=== PATIENT | female | born 1970 | race Caucasian/White ===

== ENCOUNTER 2019-01-09 12:27 | Inpatient (IN) | payer BC, OTHER ==
[2019-01-09] VITALS: BP 130/72
[~2019-01-09] VITALS: Ht 157.5 cm; Wt 46.3 kg
--- NOTE | 2019-01-09 12:34 | NUR ---
PT BIBRA FROM SNF TO ER BED 10. CAME IN ALTERED. PER REPORT, WITNESSED SEIZURE. NO NOTED ORAL/HEAD TRAUMA SPIRAL BINDER. VERBALLY RESPONSIVE BUT CONFUSED. GOWNED. PLACED ON MONITOR. SEIZURE PRECATION IMPLEMENTED. AWAITING MD LYNCH.
--- NOTE | 2019-01-09 12:55 | NUR ---
DR BURNETT AT BEDSIDE FOR EVAL.
[2019-01-09 13:10] LABS: BASOPHILS % (AUTO) 0.6 % (0.0-2.0); EOSINOPHILS % (AUTO) 0.4 % (0.0-6.0); HEMATOCRIT 38 % (33-45); LYMPHOCYTES # (AUTO) 1.4 /CMM (0.8-4.8); LYMPHOCYTES % (AUTO) 22.6 % (20.0-44.0); MEAN CORPUSCULAR HGB CONC 34 g/dl (31.0-36.0); MEAN CORPUSCULAR VOLUME 89 fL (82-100); MONOCYTES # (AUTO) 0.5 /CMM (0.1-1.30); MONOCYTES % (AUTO) 7.5 % (2.0-12.0); NEUTROPHILS # (AUTO) 4.4 /CMM (1.8-8.9); NEUTROPHILS % (AUTO) 68.9 % (43.0-81.0); PLATELET COUNT (AUTO) 194 /CMM (150-450); RED BLOOD CELL COUNT(AUTO) 4.31 MIL/uL (4.0-5.2); WHITE BLOOD COUNT (AUTO) 6.4 K/uL (4.3-11.0)
[2019-01-09 13:21] LABS: CALCIUM, SERUM 10.2 mg/dL (8.5-10.1); CARBON DIOXIDE 27 mmol/L (21-32); CHLORIDE 99 mmol/L (98-107); CREATININE 0.8 mg/dL (0.6-1.3); GLUCOSE 118 mg/dL (74-106); POTASSIUM 3.9 mmol/L (3.5-5.1); SODIUM SERUM 139 mmol/L (136-145); UREA NITROGEN, BLOOD 9 mg/dL (7-18)
[2019-01-09 13:24] LABS: ALANINE AMINOTRANSFERASE 51 U/L (12-78); ALBUMIN 4.4 g/dL (3.4-5.0); ALCOHOL, BLOOD < 3 mg/dL (0-0); ALKALINE PHOSPHATASE 89 U/L (46-116); ASPARTATE AMINOTRANSFERASE 55 U/L (15-37); BILIRUBIN,DIRECT 0.2 mg/dL (0.0-0.2); BILIRUBIN,TOTAL 0.6 mg/dL (0.2-1.0)
[2019-01-09] MEDS ORDERED: OLAN5TAB3 PO (13:34)
[2019-01-09] MEDS ORDERED: BISA10SU11 RC (13:34)
[2019-01-09] MEDS ORDERED: NICO-676 TD (13:34)
[2019-01-09] MEDS ORDERED: ACET-868 PO (13:34)
[2019-01-09] MEDS ORDERED: MULT-447 PO (13:34)
[2019-01-09] MEDS ORDERED: MAGN400O6 PO (13:34)
[2019-01-09] MEDS ORDERED: SENN-168 PO (13:34)
[2019-01-09] MEDS ORDERED: NA P133E RC (13:34)
[2019-01-09] MEDS ORDERED: CLON1TAB PO (13:34)
[2019-01-09] MEDS ORDERED: ESCI10TA PO (13:34)
[2019-01-09] MEDS ORDERED: IV NS 0.9% 1,000 ML BAG IV ONE (14:30)
--- NOTE | 2019-01-09 14:30 | NUR ---
RECTAL TEMP 99.6
--- NOTE | 2019-01-09 14:33 | NUR ---
RADIOLOGY AT BEDSIDE FOR CHEST XRAY.
[2019-01-09 14:46] LABS: APPEARANCE,URINE Clear (CLEAR); BILIRUBIN,URINE SMALL (NEGATIVE); BLOOD, URINE Negative Ery/uL (NEGATIVE); COLOR,URINE Yellow (YELLOW); KETONES,URINE 80 (NEGATIVE); LEUKOCYTE ESTERASE ,URINE Negative (NEGATIVE); NITRITE, URINE Negative (NEGATIVE); PH,URINE 6.5 (5.0-8.0); PROTEIN,URINE 100 mg/dl (NEGATIVE); UGLUCOSE Negative (NEGATIVE); UROBILINOGEN,URINE 0.2 EU/dL (0.2)
[2019-01-09 15:19] LABS: BACTERIA,URINE Few /HPF (None Seen); RBC,URINE 0-2 /HPF (0-2); SQUAMOUS EPITHELIAL CELL,UR Few /HPF (None Seen)
[2019-01-09 15:20] LABS: URINE AMORPHOUS URATE Few /HPF (None Seen)
--- NOTE | 2019-01-09 15:44 | NUR ---
CONTACT INFO FOR ELISEO (FAMILY)
--- NOTE | 2019-01-09 15:51 | NUR ---
CALLED FOR TELE-BED, TURNED IN MOVE SHEET
--- NOTE | 2019-01-09 16:51 | NUR ---
BED INFO: TELE BED 116-1, AGUSTO IS RECEIVING
--- NOTE | 2019-01-09 17:06 | NUR ---
REPORT GIVEN TO AGUSTO. AWAITING TRANSFER TO FLOOR.
--- NOTE | 2019-01-09 17:30 | NUR ---
RECEIVED PT FROM ER. PT IS ALTERED AND ANSWERING INAPPROPRIATELY. A&OX1. SKIN IS INTACT. PT HAS A R HAND IV [address] ELLIS FOR ADMISSION ORDERS. SEIZURE PRECAUTIONS IN PLACE WITH SUCTION.
--- NOTE | 2019-01-09 19:05 | NUR ---
PAGED AGAIN SPOKE WITH HIM ABOUT ADMISSION ORDERS. AWAITING ORDERS.
--- NOTE | 2019-01-09 19:10 | NUR ---
BUSINESS RISK CONSULTANT OPENING NOTES RECEIVED PATIENT IN BED, AWAKE, A/OX1. ON TELE MONITOR SR WITH HR 70'S. ON ROOM AIR, NO RESPIRATORY OR CARDIAC DISTRESS NOTED. DENIES ANY PAIN AT THE MOMENT. IV SITE RIGHT HAND #20 GAUGE, FLUSHING AND PATENT, SITE C/D/I. PATIENT NOTED TO HAVE NO ADMITTING ORDERS, PER AM RN AGUSTO, HE PAGED HOSPITALIST FOR ADMISSION ORDERS X2. NO SEIZURE ACTIVITY NOTED AT THIS TIME. SAFETY MEASURES IN PLACE; SEIZURE PRECAUTIONS IN PLACE WITH SUCTION, SIDE RAILS UP X2 AND PADDED, CALL LIGHT WITHIN REACH, BED LOCKED AND IN LOWEST POSITION, BED ALARM ON. WILL CONT TO MONITOR PT CLOSELY. AWAITING FOR ADMITTING ORDERS.
[2019-01-09] MEDS ORDERED: IV D5/0.45 NACL 1,000 ML IV PRN (19:29)
[2019-01-09] MEDS ORDERED: ACETAMINOPHEN 325 MG TABLET PO PRN (19:30)
[2019-01-09] MEDS ORDERED: MAGNESIUM HYDROXIDE 30 ML UDC PO PRN (19:30)
[2019-01-09] MEDS ORDERED: MAG HYDROX/AL HYDROX/SIMETH 30 ML UDC PO PRN (19:30)
[2019-01-09] MEDS ORDERED: Z GUARD REMEDY 2 OZ OINT TP PRN (19:30)
[2019-01-09] MEDS ORDERED: ONDANSETRON HCL/PF 4 MG/2 ML VIAL IVP PRN (19:30)
--- NOTE | 2019-01-09 19:34 | NUR ---
RN CLOSING NOTES REPORT GIVEN TO CHILDREN'S LIBRARIANTOY ASSEMBLY SUPERVISOR FOR CONTINUATION OF CARE. AWAITING ADMISSION ORDERS.
[2019-01-09 20:00] VITALS: BP 141/83
--- NOTE | 2019-01-09 21:45 | NUR ---
SALES ADVISOR NOTES GAVE REPORT TO FELICIA LORENZANA FOR MARYSE. PATIENT KEPT COMFORTABLE. SAFETY MEASURES MAINTAINED. ALL HOSPITALIST ADMITTING ORDERS ATTENDED.
[2019-01-10] VITALS: BP 130/72
--- NOTE | 2019-01-10 01:04 | NUR ---
RAYMUNDO midline 18 gauge inserted by Jd at this time. Patient tolerated the procedure well. Will continue to monitor
[2019-01-10 04:00] VITALS: BP 120/75
--- NOTE | 2019-01-10 05:52 | NUR ---
PATIENT NOTED WITH TEMPERATURE 100.4 AT THIS TIME. PRN TYLENOL GIVEN ORDERED. COOLING MEASURES INITIATED. WILL CONTINUE TO MONITOR. IN NO ACUTE DISTRESS, BREATHING EVEN AND UNLABORED.
--- NOTE | 2019-01-10 06:38 | NUR ---
PATIENT TEMPERATURE WENT DOWN TO 98.9 AXILLARY. PRN TYLENOL WITH EFFECTIVENESS. PATIENT IN NO ACUTE DISTRESS, BREATHING EVEN AND UNLABORED. NO SOB NOTED. NO S/S OF PAIN NOTED. ON TELE MONITORING WITH SINUS RHYTHM. SAFETY MAINTAINED, BED AT THE LOWEST LOCKED POSITION. CALL LIGHT WITHIN REACH. WILL ENDORSE TO AM SHIFT NURSE FOR MARYSE.
[2019-01-10 07:26] LABS: BASOPHILS # (AUTO) 0.1 /CMM (0.0-0.2); BASOPHILS % (AUTO) 0.8 % (0.0-2.0); EOSINOPHILS % (AUTO) 0.5 % (0.0-6.0); HEMATOCRIT 34 % (33-45); HEMOGLOBIN 11.7 g/dL (11.5-14.8); LYMPHOCYTES # (AUTO) 1.5 /CMM (0.8-4.8); MEAN CORPUSCULAR HGB CONC 35 g/dl (31.0-36.0); MEAN CORPUSCULAR VOLUME 88 fL (82-100); MONOCYTES # (AUTO) 0.7 /CMM (0.1-1.30); MONOCYTES % (AUTO) 7.6 % (2.0-12.0); NEUTROPHILS # (AUTO) 6.7 /CMM (1.8-8.9); NEUTROPHILS % (AUTO) 74.1 % (43.0-81.0); PLATELET COUNT (AUTO) 171 /CMM (150-450); RED BLOOD CELL COUNT(AUTO) 3.82 MIL/uL (4.0-5.2)
[2019-01-10 07:40] LABS: CALCIUM, SERUM 9.2 mg/dL (8.5-10.1); CREATININE 0.6 mg/dL (0.6-1.3); MAGNESIUM 1.7 mg/dL (1.8-2.4); POTASSIUM 3.7 mmol/L (3.5-5.1)
[2019-01-10 08:00] VITALS: BP 145/70
--- NOTE | 2019-01-10 08:01 | NUR ---
RN OPENING NOTES RECEIVED REPORT FROM REAMING MACHINE TENDER RN. PT IS IN BED RESTING. PT STILL ANSWERING INCORRECTLY TO QUESTIONS. SAFETY MEASURES IN PLACE. BED IS LOCKED AND IN LOWEST POSITION. WILL CONTINUE TO MONITOR.
[2019-01-10] MEDS: clonazePAM 1 MG TABLET PO SCH ×3 (08:29→17:00)
[2019-01-10] MEDS: ESCITALOPRAM OXALATE (10 MG) 10 MG TABLET PO SCH ×2 (08:29→09:00)
[2019-01-10] MEDS: NICOTINE PATCH (14MG) 14 MG PATCH.TD24 TD SCH ×2 (08:29→09:00)
--- NOTE | 2019-01-10 10:04 | NUR ---
IN ATTEMPTING TO GIVE PT HER MEDICATION PT BEGAN TO SPIT OUT MEDICATION STATING "IT DOES NOT MATTER HE ALREADY HAS ME". THAN SHE BEGAN TO HIDE UNDER THE COVERS.
[2019-01-10] MEDS: Magnesium 1GM/D5W 100ML PREMIX 100 ML IV SCH ×2 (10:12→11:20)
[2019-01-10 12:00] VITALS: BP 138/81
--- NOTE | 2019-01-10 12:00 | NUR ---
PER PT'S HE IS OKAY WITH HER GOING BACK TO [facility]. HE STATED PRIOR TO A FEW MONTHS AGO PT WAS ABLE TO HAVE A CONVERSATION BUT HAS BEEN DECLINING THIS HAS BEEN HER BASELINE SINCE.
--- NOTE | 2019-01-10 15:47 | NUR ---
REPORT CALL TO LIU DUARTE AT [facility]. PT WILL BE GOING TO ROOM 45A. AWAITING TRANSPORT.
[2019-01-10 16:00] VITALS: BP 125/83
[2019-01-10] MEDS ORDERED: OLANZAPINE 5 MG TABLET PO SCH (17:00)
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
[2019-01-11] MEDS ORDERED: ACET-2605 PO (15:06)
[2019-01-11] MEDS ORDERED: TRAM50TA2 PO (15:06)
[2019-01-11] MEDS ORDERED: PANT40TA2 PO (15:06)
== END 2019-01-10 18:05 | DRG 882 ==
LOC: ER 12:29 → TELE1 18:03 → MEDSG1 01-10 09:56
PROVIDERS: ADMIT Nurse Practitioner Acute Care; ATTEND Nurse Practitioner Acute Care
PROC: 05H933Z Insertion of Infusion Device into Right Brachial Vein, Percutaneous Approach (ICD-10-PCS; principal; 2019-01-10)
DX: F45.9 Somatoform disorder, unspecified (principal); G93.41 Metabolic encephalopathy; E87.1 Hypo-osmolality and hyponatremia; G40.909 Epilepsy, unspecified, not intractable, without status epilepticus; F41.9 Anxiety disorder, unspecified; F32.9 Major depressive disorder, single episode, unspecified; F29 Unspecified psychosis not due to a substance or known physiological condition; Z87.891 Personal history of nicotine dependence; Z88.1 Allergy status to other antibiotic agents; Z98.890 Other specified postprocedural states; F10.10 Alcohol abuse, uncomplicated; Y90.0 Blood alcohol level of less than 20 mg/100 ml; Z79.899 Other long term (current) drug therapy
CPT/HCPCS: 36415; 70450-TC; 71045-TC; 80048-TC; 80061-TC; 80076-TC; 80305; 81000-TC; 83735-TC; 84100-TC; 84484-TC; 84702-TC; 84703-TC; 85025-TC; 87081-TC; 87086-TC; G0378; G0480; J3475; J3490; J7030

== ENCOUNTER 2019-01-11 13:45 | Emergency (ER) | payer BC, OTHER ==
[~2019-01-11] VITALS: Ht 157.5 cm; Wt 49.0 kg
[~2019-01-11 13:45] MED LIST: ACET-868 PO; BISA10SU11 RC; CLON1TAB PO; ESCI10TA PO; MAGN400O6 PO; MULT-447 PO; NA P133E RC; NICO-676 TD; OLAN5TAB3 PO; SENN-168 PO
--- NOTE | 2019-01-11 14:00 | NUR ---
[facility] FOR AMS AND ELEVATED HR NOTED AT 1100. BG 192 CESSATION SYSTEMS OUTREACH SPECIALIST SEEN 2 DAYS AGO FOR SEIZURE. PATIENT A/OX1, RESPONDS VERBALLY AT TIMES, PATIENT STATED "I DONT WANT TO LIVE ANYMORE" DR. GONZALEZ MADE AWARE. ATTACHED TO THE ASSIGNER. NEEDS ATTENDED.
[2019-01-11 14:30] LABS: BASOPHILS % (AUTO) 0.6 % (0.0-2.0); EOSINOPHILS % (AUTO) 1.1 % (0.0-6.0); HEMATOCRIT 37 % (33-45); LYMPHOCYTES # (AUTO) 1.7 /CMM (0.8-4.8); LYMPHOCYTES % (AUTO) 22.2 % (20.0-44.0); MEAN CORPUSCULAR HGB CONC 35 g/dl (31.0-36.0); MEAN CORPUSCULAR VOLUME 87 fL (82-100); MONOCYTES # (AUTO) 0.6 /CMM (0.1-1.30); MONOCYTES % (AUTO) 8.1 % (2.0-12.0); NEUTROPHILS # (AUTO) 5.3 /CMM (1.8-8.9); PLATELET COUNT (AUTO) 206 /CMM (150-450); RED BLOOD CELL COUNT(AUTO) 4.23 MIL/uL (4.0-5.2); WHITE BLOOD COUNT (AUTO) 7.9 K/uL (4.3-11.0)
[2019-01-11] MEDS ORDERED: IV NS 0.9% 1,000 ML BAG IV ONE ×2 (14:30→16:00)
[2019-01-11 14:33] LABS: APPEARANCE,URINE Clear (CLEAR); BILIRUBIN,URINE MODERATE (NEGATIVE); BLOOD, URINE Trace-intact Ery/uL (NEGATIVE); COLOR,URINE Yellow (YELLOW); KETONES,URINE >=160 (NEGATIVE); LEUKOCYTE ESTERASE ,URINE Negative (NEGATIVE); NITRITE, URINE Negative (NEGATIVE); PH,URINE 6.5 (5.0-8.0); PROTEIN,URINE 30 mg/dl (NEGATIVE); UGLUCOSE Negative (NEGATIVE); UROBILINOGEN,URINE 0.2 EU/dL (0.2)
[2019-01-11 14:36] LABS: BACTERIA,URINE Rare /HPF (None Seen); RBC,URINE 0-2 /HPF (0-2); SQUAMOUS EPITHELIAL CELL,UR Few /HPF (None Seen); WBC,URINE 0-2 /HPF (0-3)
[2019-01-11 14:40] LABS: CALCIUM, SERUM 9.8 mg/dL (8.5-10.1); CARBON DIOXIDE 28 mmol/L (21-32); CHLORIDE 102 mmol/L (98-107); CREATININE 0.8 mg/dL (0.6-1.3); GLUCOSE 142 mg/dL (74-106); POTASSIUM 3.6 mmol/L (3.5-5.1); SODIUM SERUM 141 mmol/L (136-145); UREA NITROGEN, BLOOD 15 mg/dL (7-18)
[2019-01-11 14:51] LABS: ACETAMINOPHEN 5 ug/ml (10-30); ALANINE AMINOTRANSFERASE 47 U/L (12-78); ALCOHOL, BLOOD < 3 mg/dL (0-0); ALKALINE PHOSPHATASE 92 U/L (46-116); ASPARTATE AMINOTRANSFERASE 39 U/L (15-37); BILIRUBIN,DIRECT 0.2 mg/dL (0.0-0.2); BILIRUBIN,TOTAL 0.4 mg/dL (0.2-1.0); SALICYLATE 2.7 mg/dL (2.8-20.0); TOTAL PROTEIN, SERUM 7.5 g/dL (6.4-8.2)
[2019-01-11 14:55] LABS: SERUM AMMONIA 6 umol/L (11-32)
[2019-01-11] MEDS ORDERED: TRAM50TA2 PO (15:06)
[2019-01-11] MEDS ORDERED: ACET-2605 PO (15:06)
[2019-01-11] MEDS ORDERED: PANT40TA2 PO (15:06)
--- NOTE | 2019-01-11 15:49 | NUR ---
KAROL LIZAMAS TO [facility], ETA [id number] TRIP# [id number]
--- NOTE | 2019-01-11 17:13 | NUR ---
REPORT GIVEN TO DIRECTOR OF DIGITAL PLATFORMS. PATIENT A/OX4, IN STABLE CONDITION. HR IMPROVED 98 ON THE MONITOR. DENIES PAIN AT THIS TIME. IV removed. Catheter intact and site benign. Pressure and 4x4 applied to site. No bleeding noted. PATIENT DISCHARGED TO SNF IN STABLE CONDITION. PATIENT VERBALIZES UNDERSTANDING.
[2019-01-11 17:14] VITALS: BP 124/79
== END 2019-01-11 17:29 ==
LOC: ER 13:49
DX: E86.0 Dehydration (principal); R00.0 Tachycardia, unspecified; G93.40 Encephalopathy, unspecified; R41.82 Altered mental status, unspecified; R56.9 Unspecified convulsions; F29 Unspecified psychosis not due to a substance or known physiological condition; F10.10 Alcohol abuse, uncomplicated; Y90.0 Blood alcohol level of less than 20 mg/100 ml; Z90.89 Acquired absence of other organs; Z88.1 Allergy status to other antibiotic agents
CPT/HCPCS: 36415; 70450; 71045; 80048; 80076; 80305; 80307; 80329; 81001; 82140; 84484; 84703; 85025; 85730; 93005; 96360; 96361; 99285; G0480; J7030 ×2; 81000-TC